=== PATIENT | male | born 1995 | race Caucasian/White ===

== ENCOUNTER 2022-07-24 18:03 | Emergency (ER) | payer OTHER, SELFPAY ==
[2022-07-24 18:24] VITALS: BP 130/80; PULSE 81; RESP 35; TEMP 36.3; O2SAT 98; BMI 28.4
--- NOTE | 2022-07-24 18:27 | DI.RAD.S_ITS ---
PROCEDURE: XR CHEST 2V INDICATIONS: shortness of breath. TECHNIQUE: 2 views of the chest were acquired. COMPARISON: None. FINDINGS: Surgical changes and devices: None. Lungs and pleura: Lungs are clear. No pleural effusions or pneumothorax. Mediastinum: Mediastinal contours are normal. Heart size is normal. Bones and chest wall: No suspicious bony abnormalities. Soft tissues appear unremarkable. IMPRESSION: No acute cardiopulmonary disease. Dictated by: Jaqui Barker M.D. on 07/24/2022 at 19:20 Approved by: Jaqui Barker M.D. on 07/24/2022 at 19:20
[2022-07-24 19:13] LABS: Add Manual Diff / Slide Review NO; Basophils Absolute Auto 0 /uL (0-100); Basophils Percent Auto 0.7 % (0-2); Eosinophils Absolute Auto 100 /uL (0-450); Hematocrit 43.3 % (41-53); Lymphocytes Absolute Auto 2700 /uL (1100-4500); Lymphocytes Percent Auto 37.4 % (25-40); Mean Corpuscular HGB Conc 34.7 % (30-36); Mean Corpuscular Volume 83.6 fL (80-100); Monocytes Absolute Auto 600 /uL (0-900); Monocytes Percent Auto 7.8 % (3-14); Neutrophils Absolute Auto 3900 /uL (1500-7000); Neutrophils Percent Auto 53.1 % (50-75); Platelet Count 285 X10^3/uL (150-400); Red Blood Cell Count 5.18 X10^6/uL (4.5-5.9); Red Cell Distribution Width 12.9 % (11.6-14.8); White Blood Cell Count 7.3 X10^3/uL (4.5-11.0)
[2022-07-24 19:20] LABS: Alanine Aminotransferase 73 IU/L (<50); Albumin Globulin Ratio 1.4 (1.0-2.8); Alkaline Phosphatase 92 U/L (38-126); Aspartate Aminotransferase 40 IU/L (17-59); Bilirubin Total 0.3 mg/dL (0.2-1.3); Blood Urea Nitrogen 13 mg/dL (9-20); Calcium 9.8 mg/dL (8.4-10.2); Carbon Dioxide 21 mmol/L (22-32); Chloride 103 mmol/L (98-107); Estimated Glomerular Filt Rate > 60 mL/min (>60); Globulin 3.6 g/dL (1.7-4.1); Glucose 111 mg/dL (70-100); HEMOLYSIS 18 (0-50); Potassium 3.8 mmol/L (3.4-5.1); Sodium 140 mmol/L (137-145); Total Protein 8.6 g/dL (6.3-8.2)
[2022-07-24 19:22] LABS: COVID19 -Nasal RAPID Negative (Negative)
[2022-07-24 21:12] VITALS: BP 132/80; PULSE 75; RESP 34; O2SAT 98
--- NOTE | 2022-07-24 21:27 | DI.CT.S_ITS ---
PROCEDURE: CT ANGIO CHEST PE PROTOCOL INDICATIONS: Chest pain, shortness of breath, tachycardia TECHNIQUE: After the administration of intravenous contrast, 2 mm thick sections acquired from the pulmonary apices to the posterior costophrenic angles. 3-dimensional maximum intensity projection (MIP) coronal and sagittal reformats were then acquired through the thorax. For radiation dose reduction, the following was used: automated exposure control, adjustment of mA and/or kV according to patient size. COMPARISON: None. FINDINGS: Image quality: Excellent. Pulmonary arteries: Pulmonary arteries are normal in size, and demonstrate no intraluminal filling defects to suggest central pulmonary embolism. Lungs and pleura: Mild dependent atelectasis in posterior aspect of bilateral lung jo are seen. Subtle patchy hazy ground-glass opacities are noted in bilateral lung jo concerning for mild pulmonary edema versus pneumonitis. No pleural effusions or pneumothorax. Central and peripheral airways are patent. Mediastinum: Heart size is normal, without pericardial effusion. No mediastinal or hilar adenopathy. Thoracic aorta is normal in caliber and enhancement. Esophagus is normal in caliber, without hiatal hernia. Bones and chest wall: No suspicious bony lesions. Ribs and thoracic spine appear intact throughout. Thyroid gland is within normal limits. No axillary or supraclavicular adenopathy. Abdomen: There is suggestion of hepatomegaly and moderate hepatic steatosis. IMPRESSION: 1. No evidence of pulmonary emboli. No thoracic aortic aneurysm or dissection. 2. Mild dependent atelectasis. Mild pulmonary edema versus pneumonitis. No focal infiltrate, pleural effusion or pneumothorax. 3. No mediastinal or hilar lymphadenopathy. 4. Moderate hepatic steatosis and hepatomegaly. Dictated by: Justen Guadarrama M.D. on 07/24/2022 at 22:11 Approved by: Justen Guadarrama M.D. on 07/24/2022 at 22:13
--- NOTE | 2022-07-24 21:27 | ED.GENADULT ---
HPI - General Adult General Chief complaint: Shortness of Breath/Dyspnea Stated complaint: sudden shortness of breath Time Seen by Provider: 07/24/22 18:51 Source: patient Mode of arrival: Ambulatory Limitations: no limitations History of Present Illness HPI narrative: Patient is an otherwise healthy 26-year-old male who is here for evaluation of what he states was a fairly sudden onset of shortness of breath. He denies any chest pain. No cough. Approximately 6 weeks ago he did travel from the [facility] to the local area by car. He is not having any lower extremity swelling. Has never had a blood clot in the past. He states he was just sitting when the symptoms occurred. He does not feel particularly anxious. He has had symptoms like this in the past it was when he was at work on the [facility]. They have all resolved on their own. He states that it feels like that he can not take a deep breath and can not catch his breath. Denies any sinus congestion. No sore throat. Has not tried anything for symptoms prior to arrival. Related Data Allergies Allergy/AdvReac Type Severity Reaction Status Date / Time No Known Drug Allergies Allergy Verified 07/24/22 18:24 Review of Systems Review of Systems ROS Unobtainable: All systems reviewed & are unremarkable except as noted in HPI and below Patient History Medical History Healthy adult Social History Smoking Status: Unknown if ever smoked Smoking Status: Unknown if ever smoked alcohol intake frequency: holidays/special occasions only Substance Use Type: does not use Exam Initial Vital Signs Initial Vital Signs: Vital Signs Temperature 97.3 F L 07/24/22 18:24 Pulse Rate 81 07/24/22 18:24 Respiratory Rate 35 H 07/24/22 18:24 Blood Pressure 130/80 07/24/22 18:24 Pulse Oximetry 98 07/24/22 18:24 Oxygen Delivery Method 07/24/22 18:24 [facility] [place] Head: normal to inspection and normocephalic Resp Effort & Inspection: normal respiratory effort, labored and tachypneic Auscultation: clear to auscultation bilaterally Cardio Rate: regular rate Rhythm: regular rhythm GI Inspection: normal to inspection Skin General: no rashes or lesions noted Neuro General: patient alert, patient awake, patient oriented x3 and moves all extremities Cognition: normal cognition Extrem General: normal to inspection and capillary refill normal Psych Appearance: grossly normal and well kempt Course Orders Ordered: ED Orders 07/24/22 21:27 CT angio chest PE protocol Stat Discontinued Medications Lorazepam (Lorazepam 2 Mg/Ml Inj) 0.5 mg IV NOW ONE Stop: 07/24/22 21:33 Last Admin: 07/24/22 22:02 Dose: 0.5 mg Documented By: FERCHO Vital Signs Vital signs: Vital Signs - 8 hr 07/24/22 21:12 07/24/22 21:12 07/24/22 21:30 Pulse Rate 75 Respiratory Rate 34 H Blood Pressure 132/80 134/82 Pulse Oximetry 98 Oxygen Delivery Method Room Air 07/24/22 21:30 07/24/22 21:57 07/24/22 21:57 Pulse Rate 66 73 Respiratory Rate 24 23 Blood Pressure 133/79 Pulse Oximetry 98 100 Oxygen Delivery Method 07/24/22 22:00 07/24/22 22:30 Pulse Rate 77 85 Respiratory Rate 24 20 Blood Pressure Pulse Oximetry 99 99 Oxygen Delivery Method Medical Decision Making Lab Data Lab results reviewed: Yes I reviewed the patient's lab results. Result diagrams: 07/24/22 18:35 07/24/22 18:35 Labs: Lab Results 07/24/22 07/24/22 07/24/22 Range/Units 18:28 18:35 18:35 WBC 7.3 (4.5-11.0) X10^3/uL RBC 5.18 (4.5-5.9) X10^6/uL Hgb 15.0 (13.5-17.5) g/dL Hct 43.3 (41-53) % MCV 83.6 (80-100) fL MCH 29.0 (26-34) PG MCHC 34.7 (30-36) % RDW 12.9 (11.6-14.8) % Plt Count 285 (150-400) X10^3/uL Neut % (Auto) 53.1 (50-75) % Lymph % (Auto) 37.4 (25-40) % Gage % (Auto) 7.8 (3-14) % Eos % (Auto) 1.0 L (2-4) % Baso % (Auto) 0.7 (0-2) % Neut # (Auto) 3900 (3861-9396) /uL Lymph # (Auto) 2700 (9375-6635) /uL Gage # (Auto) 600 (0-900) /uL Eos # (Auto) 100 (0-450) /uL Baso # (Auto) 0 (0-100) /uL PT Cancelled INR Cancelled Sodium (137-145) mmol/L Potassium (3.4-5.1) mmol/L Chloride (98-107) mmol/L Carbon Dioxide (22-32) mmol/L BUN (9-20) mg/dL Creatinine (0.66-1.25) mg/dL Estimated GFR (>60) mL/min BUN/Creatinine Ratio (6-22) Glucose (70-100) mg/dL Lactate Calcium (8.4-10.2) mg/dL Total Bilirubin (0.2-1.3) mg/dL AST (17-59) IU/L ALT (<50) IU/L Alkaline Phosphatase (38-126) U/L NT-Pro-B Natriuret Pep Total Protein (6.3-8.2) g/dL Albumin (3.5-5.0) g/dL Globulin (1.7-4.1) g/dL Albumin/Globulin Ratio (1.0-2.8) SARS-CoV-2 (PCR) Negative (Negative) 07/24/22 07/24/22 Range/Units 18:35 18:35 WBC (4.5-11.0) X10^3/uL RBC (4.5-5.9) X10^6/uL Hgb (13.5-17.5) g/dL Hct (41-53) % MCV (80-100) fL MCH (26-34) PG MCHC (30-36) % RDW (11.6-14.8) % Plt Count (150-400) X10^3/uL Neut % (Auto) (50-75) % Lymph % (Auto) (25-40) % Gage % (Auto) (3-14) % Eos % (Auto) (2-4) % Baso % (Auto) (0-2) % Neut # (Auto) (5200-7731) /uL Lymph # (Auto) (4822-0753) /uL Gage # (Auto) (0-900) /uL Eos # (Auto) (0-450) /uL Baso # (Auto) (0-100) /uL PT INR Sodium 140 (137-145) mmol/L Potassium 3.8 (3.4-5.1) mmol/L Chloride 103 (98-107) mmol/L Carbon Dioxide 21 L (22-32) mmol/L BUN 13 (9-20) mg/dL Creatinine 0.81 (0.66-1.25) mg/dL Estimated GFR > 60 (>60) mL/min BUN/Creatinine Ratio 16.0 (6-22) Glucose 111 H (70-100) mg/dL Lactate Cancelled Calcium 9.8 (8.4-10.2) mg/dL Total Bilirubin 0.3 (0.2-1.3) mg/dL AST 40 (17-59) IU/L ALT 73 H (<50) IU/L Alkaline Phosphatase 92 (38-126) U/L NT-Pro-B Natriuret Pep Cancelled Total Protein 8.6 H (6.3-8.2) g/dL Albumin 5.0 (3.5-5.0) g/dL Globulin 3.6 (1.7-4.1) g/dL Albumin/Globulin Ratio 1.4 (1.0-2.8) SARS-CoV-2 (PCR) (Negative) Point of Care Testing Glucose POC 103 Point of care testing: Point of Care Testing Glucose POC 103 Imaging Data Chest x-ray: Radiologist's Impression: [address] [address] XRay Report Signed Patient: Bobby Sanon MR#: [id number] : 1995 Acct:[id number] Age/Sex: 26 / M Date of Service: 07/24/22 Loc: ED Accession Number: [id number] ?? Procedure: XR chest 2V Ordering Provider: See Pena D.O. PROCEDURE:? XR CHEST 2V ? INDICATIONS:? shortness of breath. ? TECHNIQUE:? 2 views of the chest were acquired.? ? COMPARISON:? None. ? FINDINGS:? ? Surgical changes and devices:? None.? ? Lungs and pleura:? Lungs are clear.? No pleural effusions or pneumothorax.? ? Mediastinum:? Mediastinal contours are normal.? Heart size is normal.? ? Bones and chest wall:? No suspicious bony abnormalities.? Soft tissues appear unremarkable.? ? IMPRESSION:? No acute cardiopulmonary disease.? ? ? Dictated by: Jaqui Barker M.D. on 07/24/2022 at 19:20 ? ? Approved by: Jaqui Barker M.D. on 07/24/2022 at 19:20?? CT scan - chest: Radiologist's Impression: Close Chest CTA (Signed) Justen Guadarrama - 07/24/22 Chest X-Ray (Signed) Jaqui Barker - 07/24/22 [place] [address] CT Scan Report Signed Patient: Bobby Sanon MR#: [id number] : 1995 Acct:[id number] Age/Sex: 26 / M Date of Service: 07/24/22 Loc: ED Accession Number: [id number] ?? Procedure: CT angio chest PE protocol Ordering Provider: See Pena D.O. PROCEDURE:? CT ANGIO CHEST PE PROTOCOL ? INDICATIONS:? Chest pain, shortness of breath, tachycardia ? TECHNIQUE:? After the administration of intravenous contrast, 2 mm thick sections acquired from the pulmonary apices to the posterior costophrenic angles.? 3-dimensional maximum intensity projection (MIP) coronal and sagittal reformats were then acquired through the thorax.? For radiation dose reduction, the following was used:? automated exposure control, adjustment of mA and/or kV according to patient size.? ? COMPARISON:? None. ? FINDINGS:? Image quality:? Excellent.? ? Pulmonary arteries:? Pulmonary arteries are normal in size, and demonstrate no intraluminal filling defects to suggest central pulmonary embolism.? ? Lungs and pleura:? Mild dependent atelectasis in posterior aspect of bilateral lung jo are seen.? Subtle patchy hazy ground-glass opacities are noted in bilateral lung jo concerning for mild pulmonary edema versus pneumonitis.? No pleural effusions or pneumothorax.? Central and peripheral airways are patent.? ? Mediastinum:? Heart size is normal, without pericardial effusion.? No mediastinal or hilar adenopathy.? Thoracic aorta is normal in caliber and enhancement.? Esophagus is normal in caliber, without hiatal hernia.? ? Bones and chest wall:? No suspicious bony lesions.? Ribs and thoracic spine appear intact throughout.? Thyroid gland is within normal limits.? No axillary or supraclavicular adenopathy.? ? Abdomen:? There is suggestion of hepatomegaly and moderate hepatic steatosis. ? IMPRESSION:? 1. No evidence of pulmonary emboli.? No thoracic aortic aneurysm or dissection. 2. Mild dependent atelectasis.? Mild pulmonary edema versus pneumonitis.? No focal infiltrate, pleural effusion or pneumothorax. 3.? No mediastinal or hilar lymphadenopathy. 4.? Moderate hepatic steatosis and hepatomegaly.? ? ? Dictated by: Justen Guadarrama M.D. on 07/24/2022 at 22:11 ? ? Approved by: Justen Guadarrama M.D. on 07/24/2022 at 22:13? ECG Data Attestation: I personally reviewed and interpreted this ECG as follows: Interpretation: Sinus rhythm Ventricular rate 90 Normal axis Normal QRS Normal QTC No ST T wave changes MDM Narrative Medical decision making narrative: Patient is not hypoxic but is tachypneic and speaking in only 2-3 word sentences. His chest x-ray is unremarkable. Given his sudden onset of his symptoms and his recent travel CT scan of his chest is ordered. No signs of pulmonary embolism. We did discuss the potential for pneumonitis however when his symptoms started today he was not around any particular noxious fumes. His is not having any symptoms. He was given some Ativan and this did seem to help his symptoms somewhat. Do have some concern that maybe there is an anxiety component to his presenting symptoms. No indication for antibiotics. Discussed with the patient the lack of a definitive etiology. Will have him contact his medical department for a follow-up. He was given return precautions. He expressed understanding and agreement. Discharge Plan Departure Patient Disposition: Home Clinical Impression: Shortness of breath Instructions: DI for Shortness of Breath Activity Restrictions/Additional Instructions: Your workup here in the emergency department is very reassuring. I do recommend that you contact your medical department for a follow-up. Return to the emergency department for any new or worsening symptoms. Visit Report Forms: Patient Portal/API
[2022-07-24 21:30] VITALS: BP 134/82; PULSE 66; RESP 24; O2SAT 98
[2022-07-24 21:57] VITALS: BP 133/79; PULSE 73; RESP 23; O2SAT 100
[2022-07-24 22:00] VITALS: PULSE 77; RESP 24; O2SAT 99
[2022-07-24] MEDS: LORazepam 2 MG/ML INJ 0.5 MG IV (22:02)
[2022-07-24 22:30] VITALS: PULSE 85; RESP 20; O2SAT 99
== END 2022-07-24 22:55 | disposition home or self-care (01) ==
PROVIDERS: Emergency Provider Emergency Medicine
DX: R06.82 Tachypnea, not elsewhere classified (principal); R07.9 Chest pain, unspecified; R00.0 Tachycardia, unspecified; Z20.822 Contact with and (suspected) exposure to COVID-19
CPT/HCPCS: 36415; 71046; 71275; 80053; 82962; 85025; 87635; 93005; 93010; 96374; 99284; C9803; J2060; Q9967

== ENCOUNTER → 2025-04-19 10:59 | Outpatient (CLI) | payer OTHER, SELFPAY ==
--- NOTE | 2025-04-19 11:04 | DI.RAD.S_ITS ---
PROCEDURE: FL JOINT INJECTION LARGE RT INDICATIONS: STIFFNESS OF RIGHT SHOULDER COMPARISON: None. TECHNIQUE: The indications, alternatives, benefits, risks, and complications of the procedure were explained to the patient. Written informed consent was obtained and placed in the chart. The patient was placed in an appropriate position on the fluoroscopy table, and a site was chosen for percutaneous access under fluoroscopic guidance. The site was prepped and draped in a sterile fashion. Local anesthetic was administered using a 1% lidocaine solution. A hypodermic or spinal needle was then used to access the symptomatic joint. Intra-articular location of the needle tip was confirmed by injecting a small amount of contrast, followed by steroid administration. The needle was then withdrawn, and a bandage applied to the puncture site. FINDINGS: Joint injected: Right glenohumeral joint Medications injected: 4 mL of 40 mg/mL Kenalog and 0.5% Ropivacaine mixture. Patient's pain before injection: 5 out of 10. Patient's pain after injection: 1 out of 10. Complications: None. IMPRESSION: Successful fluoroscopically guided administration of steroid and anaesthetic solution into the right glenohumeral joint. Dictated by: Brian Davis M.D. on 04/20/2025 at 8:59 Approved by: Brian Davis M.D. on 04/20/2025 at 9:59
[2025-04-19] MEDS: LIDOCAINE 1% 20 ML INJ (13:04)
[2025-04-19] MEDS: ROPIVACAINE 0.5% PF 5 MG/ML 20ML VIAL 20 ML INJ (13:05)
[2025-04-19] MEDS: TRIAMCINOLONE 40 MG/ML VIAL INTRA-ARTI (13:06)
== END ==
PROVIDERS: PCP Radiology Diagnostic Radiology
DX: M25.611 Stiffness of right shoulder, not elsewhere classified (principal)
CPT/HCPCS: 20610; 77002; Q9967

== ENCOUNTER → 2025-06-20 15:48 | Outpatient (CLI) | payer OTHER, SELFPAY ==
--- NOTE | 2025-06-20 15:50 | DI.MRI.S_ITS ---
PROCEDURE: MR OPTIC NRV WWO CON INDICATIONS: Other disease of optic disc, left eye TECHNIQUE: Noncontrast axial T1 spin echo, axial T2 fast spin echo, sagittal and axial FLAIR, coronal T2 fast spin echo, axial gradient echo, axial diffusion and ADC through the brain. After the administration of contrast, axial and coronal and sagittal 3D VIBE or T1 spin echo with fat saturation through the brain. COMPARISON: None. FINDINGS: Image quality: Excellent. CSF Spaces: Basal cisterns are patent. No extra-axial fluid collections. Ventricles are normal in size and shape. Brain: No midline shift. No intracranial bleeds or masses. No abnormal intracranial enhancement. The brainstem appears normal. Diffusion-weighted images demonstrate no acute infarct. No chronic ischemic insults. Normal intravascular flow voids are present. Orbits: Both optic nerves are appropriate and symmetric in size and signal characteristics. No abnormal enhancement. Optic nerve sheaths are likewise unremarkable. Extraocular muscles and orbital fat normal. Skull and face: Calvarial marrow is normal in signal. Orbits appear normal. Sinuses: Bilateral maxillary sinus retention cysts without remodeling IMPRESSION: Normal MRI of the brain and orbits without evidence of optic neuritis Approved by: Teodoro Montalvo M.D. on 06/20/2025 at 18:03
== END ==
LOC: MRI 15:49
PROVIDERS: PCP Radiology Diagnostic Radiology; Referring Provider Radiology Diagnostic Radiology
DX: H47.392 Other disorders of optic disc, left eye (principal)
CPT/HCPCS: 70543; 70553; A9579